=== PATIENT | female | born 1965 | race Caucasian/White ===

== ENCOUNTER 2024-05-03 10:10 | Outpatient (CLI) | payer BC, SELFPAY | END 2024-05-03 10:11 | disposition home or self-care (01) | LOC: NFLDREF 05-07 18:58 | PROVIDERS: PCP Family Medicine; Referring Provider Family Medicine; Visit Provider Physician Assistant | DX: R03.0 Elevated blood-pressure reading, without diagnosis of hypertension (principal); R10.10 Upper abdominal pain, unspecified | CPT/HCPCS: 84484 ==